=== PATIENT | female | born 1995 | race American Indian/Alaskan Native ===

== ENCOUNTER 2017-11-08 15:13 | Emergency (ER) | payer OTHER ==
[2017-11-08 15:14] VITALS: BMI 17.5
[2017-11-08 15:28] VITALS: BP 118/77; PULSE 79; RESP 18; TEMP 98.7; O2SAT 97
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
== END 2017-11-08 16:00 | disposition home or self-care (01) ==
LOC: ED 15:13
DX: M79.1 Myalgia (principal); V49.49XA Driver injured in collision with other motor vehicles in traffic accident, initial encounter; Y92.410 Unspecified street and highway as the place of occurrence of the external cause

== ENCOUNTER 2017-12-03 20:26 | Emergency (ER) | payer OTHER ==
[2017-12-03 20:27] VITALS: BMI 17.5
[2017-12-03 20:58] VITALS: TEMP 98.6
--- NOTE | 2017-12-03 22:02 | ED PDOC ---
Arrival/HPI <DollyRoverto francisco - Last Filed: 12/04/17 00:00> - General Historian: Patient - History of Present Illness Time/Duration: Prior to Arrival Symptom Onset: Gradual Symptom Course: Resolved Quality: Other (mild abdominal bloating; pink vaginal discharge) Activities at Onset: Rest Context: Home <Bonnie Lester - Last Filed: 12/04/17 11:34> - General Chief Complaint: Female Genitourinary Time Seen by Provider: 12/03/17 21:13 - History of Present Illness Narrative History of Present Illness (Text): 12/03/17 21:54 Pt is a 22 yo F who presents to the ER for STD testing and possible UTI. Pt admits that she works 6 days a week and cannot see her JOB SERVICE CONSULTANT otherwise so decided to come to the ER instead. She states that she is on DepoProvera and started her menses last week as usual but had some bloating and wondered if it might be a STI as she had unprotected sex on the weekend. Denies, dysuria, abdominal pain , cp, sob, MCCRACKEN, fever or chills. (Bonnie Lester) Past Medical History - Provider Review Nursing Documentation Reviewed: Yes - Travel History Have you recently traveled outside [place] w/in the past 3 mons?: No - Past History Past History: No Previous - Infectious Disease Hx of Infectious Diseases: None - Tetanus Immunization Tetanus Immunization: Unknown - Reproductive Currently : No - Cardiac Hx Cardiac Disorders: No - Pulmonary Hx Respiratory Disorders: No - Neurological Hx Neurological Disorder: No - HEENT Hx HEENT Disorder: No - Renal Hx Renal Disorder: No - Endocrine/Metabolic Hx Endocrine Disorders: No - Hematological/Oncological Hx Blood Disorders: No - Integumentary Hx Dermatological Disorder: No - Musculoskeletal/Rheumatological Hx Musculoskeletal Disorders: No - Gastrointestinal Hx Gastrointestinal Disorders: No - Genitourinary/Gynecological Hx Genitourinary Disorders: Yes Hx Sexually Transmitted Diseases: Yes - Psychiatric Hx Psychophysiologic Disorder: No Hx Depression: No Hx Emotional Abuse: No Hx Physical Abuse: No Hx Substance Use: No - Past Surgical History Past Surgical History: No Previous - Anesthesia Hx Anesthesia: No - Suicidal Assessment Feels Threatened In Home Enviroment: No <Bonnie Lester - Last Filed: 12/04/17 11:34> Family/Social History - Physician Review Nursing Documentation Reviewed: Yes Family/Social History: No Known Family HX Smoking Status: Never Smoked Hx Alcohol Use: Yes Frequency of alcohol use: Socially Hx Substance Use: No Hx Substance Use Treatment: No <Bonnie Lester - Last Filed: 12/04/17 11:34> Allergies/Home Meds <DollyRoverto - Last Filed: 12/04/17 00:00> <Bonnie Lester - Last Filed: 12/04/17 11:34> Allergies/Adverse Reactions: Allergies No Known Allergies Allergy (Verified 12/03/17 20:52) Home Medications: Home Meds Medication Instructions Recorded Confirmed No Known Home Med 12/03/17 12/03/17 Review of Systems - Review of Systems Constitutional: Normal Eyes: Normal ENT: Normal Respiratory: Normal Cardiovascular: Normal Gastrointestinal: Normal Genitourinary Female: Normal Musculoskeletal: Normal Skin: Normal Neurological: Normal Endocrine: Normal Hemo/Lymphatic: Normal Psychiatric: Normal <Bonnie Lester - Last Filed: 12/04/17 11:34> Physical Exam Vital Signs Reviewed: Yes Temperature: Afebrile Blood Pressure: Normal Pulse: Regular Respiratory Rate: Normal Appearance: Positive for: Well-Appearing, Non-Toxic, Comfortable Pain Distress: None Mental Status: Positive for: Alert and Oriented X 3 - Systems Exam Head: Present: Atraumatic, Normocephalic Pupils: Present: PERRL Extroacular Muscles: Present: EOMI Conjunctiva: Present: Normal Mouth: Present: Moist Mucous Membranes Neck: Present: Normal Range of Motion Respiratory/Chest: Present: Clear to Auscultation, Good Air Exchange. No: Respiratory Distress, Accessory Muscle Use Cardiovascular: Present: Regular Rate and Rhythm, Normal S1, S2. No: Murmurs Abdomen: Present: Normal Bowel Sounds. No: Tenderness, Distention, Peritoneal Signs Back: Present: Normal Inspection Upper Extremity: Present: Normal Inspection. No: Cyanosis, Edema Lower Extremity: Present: Normal Inspection. No: Edema Neurological: Present: GCS=15, CN II-XII Intact, Speech Normal Skin: Present: Warm, Dry, Normal Color. No: Rashes Psychiatric: Present: Alert, Oriented x 3, Normal Insight, Normal Concentration <Bonnie Lester - Last Filed: 12/04/17 11:34> Vital Signs Temp Pulse Resp BP Pulse Ox 12/04/17 00:01 73 18 120/78 98 12/03/17 20:53 98.6 F 78 17 118/77 97 Medical Decision Making <Roverto Alberto - Last Filed: 12/04/17 00:00> <Bonnie Lester - Last Filed: 12/04/17 11:34> ED Course and Treatment: 12/03/17 22:02 Pt is a 22 yo F who presents to the ER for STD testing and possible UTI. Plan: 1. UA 2. Gonorrhea and chlamydia testing UA negative for UTI and discussed w pt follow up with JOB SERVICE CONSULTANT if any concerns; will notify pt if tests positive VSS and pt ambulated out of ER (Bonnie Lester) - Lab Interpretations Lab Results: Lab Results 12/03/17 22:00: Urine Color Yellow, Urine Appearance Clear, Urine pH 7.0, Ur Specific Cades 1.010, Urine Protein Negative, Urine Glucose (UA) Negative, Urine Ketones Negative, Urine Blood Trace-lysed H, Urine Nitrate Negative, Urine Bilirubin Negative, Urine Urobilinogen 0.2, Ur Leukocyte Esterase Negative , Urine RBC 0 - 2, Urine WBC 1 - 3, Ur Epithelial Cells 3 - 4, Urine Bacteria Few - PA / FOOD PROCESSING CHEMIST / Resident Statement MD/DO has reviewed & agrees with the documentation as recorded. <Roverto Alberto - Last Filed: 12/04/17 00:00> Disposition/Present on Arrival <Roverto Alberto - Last Filed: 12/04/17 00:00> - Present on Arrival Any Indicators Present on Arrival: No History of DVT/PE: No History of Uncontrolled Diabetes: No Urinary Catheter: No History of Decub. Ulcer: No History Surgical Site Infection Following: None - Disposition Have Diagnosis and Disposition been Completed?: Yes Disposition Time: 23:00 (12/03/2016) Patient Plan: Discharge <Bonnie Lester - Last Filed: 12/04/17 11:34> - Disposition Diagnosis: Abdominal bloating associated with menstruation Disposition: HOME/ ROUTINE Condition: GOOD Discharge Instructions (ExitCare): Gas and Bloating (ED) Additional Instructions: Dear Patient, You have been diagnosed with abdominal gas and bloating that responds best with supportive care such as plenty of rest, fluids, tylenol or ibuprofen for pain and fever. If you experience severe fever, pain, chest pain or shortness of breath of any other alarming symptoms, return to the emergency room immediately. Please follow up with your Primary Doctor in less than a week. All the best in your recovery. Referrals: PCP,NO [Primary Care Provider] - Follow up with primary Forms: [employer] (Lebanese)
[2017-12-03 22:42] LABS: URINE BILIRUBIN NEGATIVE (NEGATIVE); URINE BLOOD TRACE-LYSED (NEGATIVE); URINE GLUCOSE (UA) NEGATIVE (NEGATIVE); URINE LEUKOCYTE ESTERASE NEGATIVE Leu/uL (NEGATIVE); URINE NITRATE NEGATIVE (NEGATIVE); URINE PROTEIN NEGATIVE mg/dL (<30 mg/dL); URINE UROBILINOGEN 0.2 E.U./dL (<1 E.U./dL)
[2017-12-03 22:47] LABS: URINE APPEARANCE CLEAR (CLEAR); URINE COLOR YELLOW (YELLOW)
[2017-12-03 23:32] LABS: URINE BACTERIA FEW (NEG); URINE RBC 0 - 2 /hpf (0-2)
[2017-12-04 00:03] VITALS: BP 120/78; PULSE 73; RESP 18; O2SAT 98
== END 2017-12-04 00:01 | disposition home or self-care (01) ==
LOC: ED 20:26
DX: R14.0 Abdominal distension (gaseous) (principal)